=== PATIENT | male | born 1965 | race Caucasian/White ===

== ENCOUNTER 2021-06-04 12:57 | Outpatient (REF) | payer SELFPAY ==
[2021-06-04 20:05] LABS: ALT 22 U/L (16-63); AST 23 U/L (15-37); Albumin 4.1 g/dL (3.4-5.0); Alkaline Phosphatase 70 U/L (46-116); Anion Gap 11.5 mmol/L (3-11); BUN 12 mg/dL (7-18); Bilirubin, Total 0.4 mg/dL (0.2-1.0); CO2 24.5 mmol/L (21.0-32.0); CREATININE 0.7 mg/dL (0.70-1.30); Calcium 9.3 mg/dL (8.5-10.1); Chloride 103 mmol/L (98-107); Glucose 101 mg/dL (74-106); Potassium 4.6 mmol/L (3.5-5.1); Sodium 139 mmol/L (136-145); Total Protein 7.4 g/dL (6.4-8.2)
[2021-06-04 20:52] LABS: Calculated LDL 136 mg/dL (<100); Cholesterol 242 mg/dL (<200); HDL Cholesterol 94 mg/dL (40-60); Triglyceride 62 mg/dL (<150)
== END 2021-06-04 12:58 | disposition home or self-care (01) ==
LOC: NCHCN 12:57
PROVIDERS: Visit Provider Nurse Practitioner
DX: I10 Essential (primary) hypertension (principal)
CPT/HCPCS: 80053; 80061

== ENCOUNTER 2022-06-22 15:06 | Outpatient (REF) | payer SELFPAY ==
[2022-06-22 16:31] LABS: ALT 22 U/L (16-63); AST 29 U/L (15-37); Albumin 4.2 g/dL (3.4-5.0); Alkaline Phosphatase 69 U/L (46-116); Anion Gap 7.4 mmol/L (3-11); BUN 12 mg/dL (7-18); Bilirubin, Total 0.3 mg/dL (0.2-1.0); CO2 26.6 mmol/L (21.0-32.0); CREATININE 0.9 mg/dL (0.70-1.30); Calcium 9.3 mg/dL (8.5-10.1); Calculated LDL 99 mg/dL (<100); Chloride 98 mmol/L (98-107); Cholesterol 200 mg/dL (<200); Glucose 102 mg/dL (74-106); HDL Cholesterol 90 mg/dL (40-60); Potassium 4.3 mmol/L (3.5-5.1); Sodium 132 mmol/L (136-145); Total Protein 7.8 g/dL (6.4-8.2); Triglyceride 56 mg/dL (<150)
== END 2022-06-22 15:07 | disposition home or self-care (01) ==
LOC: NCHCN 15:06
PROVIDERS: PCP Nurse Practitioner Family; Visit Provider Nurse Practitioner Family
DX: Z00.00 Encounter for general adult medical examination without abnormal findings (principal); I10 Essential (primary) hypertension; E78.5 Hyperlipidemia, unspecified
CPT/HCPCS: 80053; 80061

== ENCOUNTER 2022-09-29 11:41 | Day surgery (SDC) | payer OTHER, SELFPAY ==
--- NOTE | 2022-09-29 08:36 | HPE_ITS ---
Documented by User: MIR Agrawal 09/29/22 12:29 Assessment and Plan Assessment and plan (1) Trigger finger, right ring finger: Status: Acute (2) Right carpal tunnel syndrome: Status: Acute Assessment and plan: Right ECTR and right ring finger trigger release. Details of surgery were discussed with patient as well as risks and pertinent anatomy. All questions were answered. History of Present Illness History of Present Illness Chief Complaint: Right hand numbness and tingling with right ring finger triggering. Narrative: Hansel is a 57-year-old male who comes in today for a right ECTR and right ring finger trigger release. He has had numbness and tingling with burning type pain in his right hand especially in the thumb, index and middle fingers. He states that the symptoms radiate up into the forearm as well. 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 He has attempted nighttime bracing with very little symptomatic relief. After a visit with neurology, EMGs revealed carpal tunnel syndrome of the right hand. He also has had sticking of the right ring finger over the last couple of months. Injections of trigger fingers on his other hand do not provide complete relief. As a result of failing conservative treatments, he was offered a right ECTR and right ring finger trigger release. Pertinent Surgical Information Patient denies CAD, COPD, asthma and diabetes. Review of Systems Constitutional Constitutional: Denies fever(s) ENT Ears, Nose, Mouth, and Throat: Denies dizziness and Denies sore throat Cardiovascular Cardiovascular: Denies chest pain, Denies palpitations and Denies dyspnea Respiratory Respiratory: Denies cough and Denies dyspnea Gastrointestinal Gastrointestinal: Denies abdominal pain, Denies melena, Denies hematochezia, Denies diarrhea, Denies nausea and Denies vomiting Genitourinary Genitourinary: Denies hematuria and Denies dysuria Neurologic Neurologic: Denies dizziness Endocrine Endocrine: Denies palpitations PFSH All Active Problems (Updated 09/28/22 @ 11:16 by Lisa Whaley RN) Hypertension (Chronic) Smoker (Acute) Trigger finger, left index finger (Acute) Trigger finger, left middle finger (Acute) Right carpal tunnel syndrome (Acute) Trigger finger, right ring finger (Acute) Medical History (Updated 09/28/22 @ 11:16 by Lisa Whaley RN) Erectile dysfunction History of amputation of toe Hyperlipidemia Surgical History (Updated 09/28/22 @ 11:16 by Lisa Whaley RN) History of back surgery History of hernia repair Social History Smoking/Tobacco Use Status: Current every day Smoking risk assessment performed?: Yes Drug use: Rarely Substance use type: marijuana Details: Pt states cannabis 2 hits q2wks Do you feel safe at home: Yes Do you feel safe in your relationship?: Yes Meds Allergies and Home Medications Allergies Allergy/AdvReac Type Severity Reaction Status Date / Time No Known Allergies Allergy Verified 08/28/22 08:18 Home Medications Medication Instructions Recorded Confirmed Type atorvastatin 20 mg tablet 20 mg PO DAILY 05/20/22 09/29/22 History hydrochlorothiazide 12.5 mg tablet 12.5 mg PO DAILY 05/20/22 09/29/22 History lisinopril 20 mg tablet 20 mg PO DAILY 05/20/22 09/29/22 History sildenafil 25 mg tablet 25 mg PO DAILY PRN 05/20/22 09/29/22 History terbinafine HCl 1 % topical cream 1 applic topical BID 08/20/22 09/29/22 History acetaminophen 500 mg tablet 500 mg PO Q6H PRN 09/28/22 09/29/22 History acetaminophen 500 mg tablet 500 mg PO Q6H PRN PRN pain #40 tabs 09/29/22 Rx hydrocodone 5 mg-acetaminophen 325 1 tab PO Q6H PRN pain #8 tabs 09/29/22 Rx mg tablet ibuprofen 600 mg tablet 600 mg PO TID PRN pain #90 tabs 09/29/22 Rx Exam Const General: cooperative and no acute distress Orientation: alert and awake [facility] Head: normocephalic and atraumatic Eyes Conjunctivae: conjunctivae normal Sclera: sclerae normal Resp Effort & Inspection: normal respiratory effort Auscultation: clear to auscultation bilaterally and no wheezes Cardio Rate: regular rate Rhythm: regular rhythm Heart Sounds: S1 normal, S2 normal and no murmurs GI Palpation: soft, no hepatosplenomegaly and nontender Documented by User: Jacinto Wyman MD 09/30/22 07:41 Assessment and Plan Assessment and plan (1) Trigger finger, right ring finger: Status: Acute (2) Right carpal tunnel syndrome: Status: Acute Assessment and plan: Right ECTR and right ring finger trigger release. Details of surgery were discussed with patient as well as risks and pertinent anatomy. All questions were answered. I interviewed and examined the patient with Jorge Alberto Tracey PA-C. I agree with the documentation as above. The assessment and plan were formulated with my direct involvement. Hansel is a 57-year-old [id number] male who has carpal tunnel syndrome, proved with nerve reduction studies and clinical exam, on the right side. Additionally, he has a trigger finger of the right ring finger. Please see the previous office note for complete detailed history. However, he is here today for carpal tunnel release and trigger finger release on the right side. I discussed the risks of the procedure to include, but not limited to, bleeding, infection, palmar pain, stiffness, damage to nerves, damage to vessels, damage to tendons, weakness, recurrence, and incomplete release. Given these risks, Hansel desires to proceed with carpal tunnel release and right ring finger trigger release. Jacinto Wyman MD FAAOS FAAHKS PFSH All Active Problems (Updated 09/28/22 @ 11:16 by Lisa Whaley RN) Hypertension (Chronic) Smoker (Acute) Trigger finger, left index finger (Acute) Trigger finger, left middle finger (Acute) Right carpal tunnel syndrome (Acute) Trigger finger, right ring finger (Acute) Medical History (Updated 09/28/22 @ 11:16 by Lisa Whaley RN) Erectile dysfunction History of amputation of toe Hyperlipidemia Surgical History (Updated 09/28/22 @ 11:16 by Lisa Whaley RN) History of back surgery History of hernia repair Social History Smoking/Tobacco Use Status: Current every day Smoking risk assessment performed?: Yes Drug use: Rarely Substance use type: marijuana Details: Pt states cannabis 2 hits q2wks Do you feel safe at home: Yes Do you feel safe in your relationship?: Yes Meds Allergies and Home Medications Allergies Allergy/AdvReac Type Severity Reaction Status Date / Time No Known Allergies Allergy Verified 08/28/22 08:18 Home Medications Medication Instructions Recorded Confirmed Type atorvastatin 20 mg tablet 20 mg PO DAILY 05/20/22 09/29/22 History hydrochlorothiazide 12.5 mg tablet 12.5 mg PO DAILY 05/20/22 09/29/22 History lisinopril 20 mg tablet 20 mg PO DAILY 05/20/22 09/29/22 History sildenafil 25 mg tablet 25 mg PO DAILY PRN 05/20/22 09/29/22 History terbinafine HCl 1 % topical cream 1 applic topical BID 08/20/22 09/29/22 History acetaminophen 500 mg tablet 500 mg PO Q6H PRN 09/28/22 09/29/22 History acetaminophen 500 mg tablet 500 mg PO Q6H PRN PRN pain #40 tabs 09/29/22 Rx hydrocodone 5 mg-acetaminophen 325 1 tab PO Q6H PRN pain #8 tabs 09/29/22 Rx mg tablet ibuprofen 600 mg tablet 600 mg PO TID PRN pain #90 tabs 09/29/22 Rx
[2022-09-29 11:55] VITALS: BP 158/95; PULSE 70; RESP 18; TEMP 37.2; O2SAT 100
[2022-09-29] MEDS: Lactated Ringers 1,000 ML 80 ML IV (12:21)
--- NOTE | 2022-09-29 12:33 | W.ANESPRE ---
General Info Date of Service Date Performed: 09/29/22 Height: 5 ft 11 in Weight: 77 kg Body Mass Index (BMI): 23.6 Surgical Procedure: Operation Date: 09/29/22 14:10 Proposed Procedure Side Surgeon p Wrist ECTR Right Jacinto Wyman MD s Trigger Release RRF Right Jacinto Wyman MD Meds Allergies and Home Medications Allergies Allergy/AdvReac Type Severity Reaction Status Date / Time No Known Allergies Allergy Verified 08/28/22 08:18 Home Medication Medication Instructions Recorded atorvastatin 20 mg tablet 20 mg PO DAILY 05/20/22 hydrochlorothiazide 12.5 mg tablet 12.5 mg PO DAILY 05/20/22 lisinopril 20 mg tablet 20 mg PO DAILY 05/20/22 sildenafil 25 mg tablet 25 mg PO DAILY PRN 05/20/22 terbinafine HCl 1 % topical cream 1 applic topical BID 08/20/22 acetaminophen 500 mg tablet 500 mg PO Q6H PRN 09/28/22 Current Visit Medications: Current Medications Generic Name Dose Route Start Last Admin Trade Name Kermitq PRN Reason Stop Dose Admin Ringer's Solution 1,000 mls @ 80 mls/hr 09/29/22 06:00 09/29/22 12:21 IV 10/28/22 23:59 80 mls/hr INFUSION CRISTIANA Administration Cefazolin Sodium/Dextrose 2 gm in 50 mls @ 100 mls/hr 09/29/22 06:00 Ancef Duplex IVPB 10/28/22 23:59 PREOP CRISTIANA IV Miscellaneous Supplies 1 each 09/29/22 06:00 Iv Access IV 10/28/22 23:59 DIRECTED CRISTIANA Sodium Chloride 0 ml 09/29/22 06:00 Normal Saline Flush 10 Ml Syr IV 10/28/22 23:59 PRN PRN Sodium Chloride 0 ml 09/29/22 06:00 Normal Saline 10 Ml Vial IJ 10/28/22 23:59 DIRECTED PRN Sterile Water 0 ml 09/29/22 06:00 Water,Injection,Sterile 10 Ml Vial IJ 10/28/22 23:59 DIRECTED PRN PFSH Active Problems Active Problems: Problem Status Onset Code Hypertension I10 Smoker F17.200 Trigger finger, left index finger M65.322 Trigger finger, left middle finger M65.332 Right carpal tunnel syndrome G56.01 Trigger finger, right ring finger M65.341 Medical History Medical History (Updated 09/28/22 @ 11:16 by Lisa Whaley RN) Erectile dysfunction History of amputation of toe Hyperlipidemia Surgical History Surgical History (Updated 09/28/22 @ 11:16 by Lisa Whaley RN) History of back surgery History of hernia repair Tobacco Smoking/Tobacco Use Status: Current every day Substance Use Substance use: Rarely Substance use type: marijuana Details: Pt states cannabis 2 hits q2wks Vital Signs and Lab Results Vital Signs Most Recent Vital Signs in EMR: Most Recent Vital Signs Temp Pulse Resp BP Pulse Ox 37.2 C 70 18 158/95 H 100 09/29/22 11:55 09/29/22 11:55 09/29/22 11:55 09/29/22 11:55 09/29/22 11:55 Lab Results Blood Type / Crossmatch: No Data to Display Complete Blood Count: No Data to Display Complete Metabolic Panel: No Data to Display Liver Function Panel: No Data to Display Coagulation Panel: No Data to Display Cardiac Panel: No Data to Display Arterial Blood Gas: No Data to Display Venous Blood Gas: No Data to Display Pancreas Panel: No Data to Display Thyroid Panel: No Data to Display Infectious Disease: No Data to Display Blood Cultures: No Data to Display Toxicology Panel: No Data to Display Anesthesia Assessment and Plan Anesthesia History Personal History: No History of Anesthesia Complications Family History: No Family History of Anesthesia Complications Exercise Tolerance Exercise Tolerance: Metabolic Equivalents>4 Pertinent Negatives Pertinent Negatives: No Symptoms of GERD, No Major Cardiovascular Symptoms or Complaints, No Major Pulmonary Symptoms or Complaints and No History of CVA/TIA Cardiac & Pulmonary Exam Cardiac Exam: Normal S1/S2 Heart Sounds Pulmonary Exam: Clear Bilateral Breath Sounds Implantable Cardiac Device Does patient have a Pacemaker or an ICD?: No Airway Exam Known Difficult Airway: No Mallampati Class: 2 Mouth Opening: Normal (> 3cm) Thyromental Distance: Greater than 3 cm Neck Range of Motion: Full ROM Neck Circumference: Normal Teeth Condition: Normal Dentition, Generalized Poor Dentition and Loose or Chipped Tooth Numberin. Reported possible chip on or ASA Classification ASA Score: ASA 2 Emergency Case?: No NPO Status NPO Status: NPO Clears >2 hours, Solids >8 hours Anesthesia Plan Resuscitation Status: Full Code Anesthesia Technique: General Anesthesia Airway Planned: Natural Airway Monitors Used: Standard Monitors
[2022-09-29 12:35] VITALS: BMI 23.6
[2022-09-29] MEDS: ceFAZolin 2 GM/50 ML BAG IVPB (13:52)
--- NOTE | 2022-09-29 14:07 | W.PM.DSUDISC ---
Date of service: 09/29/22 Time of Service: 14:11 Discharge Plan Disposition Patient Disposition: HOME Condition: Good Discharge Details Reason For Visit: Right carpal tunnel and right ring trigger finger Attending Provider: Jacinto Wyman Primary Care Provider: KIRAN ISBELL Home Meds and New Rx's Prescriptions: New hydrocodone-acetaminophen 5-325 mg tablet 1 tab PO Q6H PRN (Reason: pain) Qty: 8 0RF acetaminophen 500 mg tablet 500 mg PO Q6H PRN PRN (Reason: pain) Qty: 40 3RF ibuprofen 600 mg tablet 600 mg PO TID PRN (Reason: pain) Qty: 90 3RF Continued terbinafine HCl 1 % cream 1 applic topical BID sildenafil 25 mg tablet 25 mg PO DAILY PRN Rx Instructions: administer 30 minutes to 4 hours before activity lisinopril 20 mg tablet 20 mg PO DAILY hydrochlorothiazide 12.5 mg tablet 12.5 mg PO DAILY atorvastatin 20 mg tablet 20 mg PO DAILY acetaminophen 500 mg Tablet 500 mg PO Q6H PRN Discharge Instructions Stand Alone Forms: Anesthesia Discharge Inst., [place] C. Tunnel Release, [place] T. Finger Release, Etta Aguila ([facility]) Referrals: Jacinto Wyman MD [ [facility] STAFF PHYSICIAN] - Activity:: Elevate Remove Dressings/Wound Care:: 48 hours Shower/Bathe:: 48 hours Diet:: As Tolerated Discharge Orders Discharge Orders: Discharge Order (Routine); Ordered 09/29/22 Ordered By: Elisabeth Arreola DS: Diagnosis Discharge Diagnosis (1) Trigger finger, right ring finger: Status: Acute (2) Right carpal tunnel syndrome: Status: Acute
[2022-09-29 14:20] VITALS: BP 128/78; PULSE 67; RESP 18; TEMP 36.5; O2SAT 98
[2022-09-29 14:53] VITALS: BP 140/94; PULSE 58; RESP 18; TEMP 36.5; O2SAT 98
--- NOTE | 2022-09-29 15:26 | W.ANESPOSTOP ---
Postoperative Evaluation Date, Time and Location Date Performed: 09/29/22 Time Performed: 15:26 Patient Location: Day Surgery Unit Vital Signs Most Recent Imported Vital Signs: Most Recent Vital Signs Temp Pulse Resp BP Pulse Ox 36.5 C 58 L 18 140/94 H 98 09/29/22 14:53 09/29/22 14:53 09/29/22 14:53 09/29/22 14:53 09/29/22 14:53 Pain Score Most Recent Pain Score: Most Recent Pain Score Pain Level 0 09/29/22 14:53 Assessment Mental Status: Awake (Alert & Oriented to Patient Baseline) Airway and Respiratory Function: Patent airway with normal (patient baseline) respiratory exam Cardiovascular Function: Hemodynamically Stable Hydration Status: Adequately Hydrated Nausea & Vomiting: No Nausea or Vomiting Pain: Pt. Denies Any Pain Peripheral Nerve Block: Patient did not receive a nerve block
--- NOTE | 2022-09-29 20:55 | ROE_ITS ---
Date of service: 09/29/22 Time of Service: 14:15 Operative Note Operative Note DATE OF PROCEDURE: 09/29/22 PRE-OP DIAGNOSIS: Right Carpal Tunnel Syndrome and Right Ring Finger Trigger Release POST-OP DIAGNOSIS: same PROCEDURE: Right Endoscopic Carpal Tunnel Release, Right Ring Finger Trigger Release SURGEON: Jacinto Wyman ANESTHESIA TYPE: General:No Airway Refer to Anesthesia Record ESTIMATED BLOOD LOSS: 0 PATHOLOGY: none sent TOURNIQUET TIME: 10 COMPLICATIONS: None Patient was transported to: same day Patient's condition: stable Indications: I have seen Hansel in clinic for symptoms of carpal tunnel syndrome and a trigger finger of the ring finger. The numbness, tingling, and pain limited function. Clinical exam findings with nerve conduction tests confirmed the diagnosis of carpal tunnel syndrome. Nonoperative measures such as bracing, time, activity modifications had been tried but disability and pain persisted. I discussed carpal tunnel release with the patient. I reviewed the risks of the procedure to include, but not limited to, bleeding, infection, pain, stiffness, incomplete release, damage to nerves or vessels, persistent numbness, recurrence. Despite these risks, the patient elected to proceed. Findings: There was tightened carpal tunnel. This was dilated and released successfully with the endoscopic with increased space within the tunnel. The antebrachial fascia was released proximally freeing the median nerve at the wrist. The A1 terri of the ring finger was released without difficulty. Procedure Description: Hansel was greeted in the preoperative holding area where the correct side was identified and marked. The consent was reviewed with the patient and signed. The history and physical was updated. All questions were answered. He was taken back to the operating room. The patient was placed into the supine position on the operating room table with the right arm on an arm board. A nonsterile tourniquet was placed high onto the arm. All bony prominences were well padded. Prophylactic antibiotics in the form of Cefazolin were administered. The right arm was then prepped with Chloraprep and draped in a standard fashion with stockinette and extremity drape. A timeout to confirm correct identity, side and site, procedure, allergies, anesthesia, and medical concerns was performed. The surgical site was marked in the volar wrist creases in line with the radial border of the fourth ray. This area was anesthetized with approximately 6cc of 1% Lidocaine. The limb was then exsanguinated with an Esmarch. The skin was incised with a 15 blade, approximately 1cm. The skin only was cut and the deeper tissue was dissected bluntly with a tenotomy scissor, avoiding passing nerve and venous structures. The fascia was penetrated and opened bluntly. A t wo-prong skin hook was placed under this proximal fascial edge. A series of hamate finders were used to identify and dilate the carpal tunnel. Synovial elevator was used to free synovial attachments to the underside of the transverse carpal ligament. My thumb was kept in the palm to laurie the distal extent of the carpal tunnel and correctly position the hand. The Microaire endoscope was inserted without difficulty and without resistance. Excellent visualization showed horizontally running fibers of the transverse carpal ligament (TCL). The distal extent of the TCL was visualized and the end of the scope palpated with the thumb. The blade was elevated and withdrawn from distal to proximal. The TCL was split into two flaps. The endoscope was reinserted to confirm complete release and any remnant ligament was incised. The scope was withdrawn and the proximal aspect of the carpal tunnel was grossly inspected and appeared release with the median nerve visible. The antebrachial fascia at the level of the wrist was then freed from the overlying skin and then the underlying median nerve with blunt dissection. This was transected longitudinally for about 3cm proximal to the wrist incision. The wound was then irrigated with easy flow of irrigant distally and proximally. The incision was closed with a single 4-0 Nylon suture. Attention was then turned to the right ring finger. A longitudinal incision was made overlying the A1 terri of the right ring finger after anesthetizing the skin and superficial tissues with 1% lidocaine. Tissues were bluntly dissected overlying the A1 terri until it was easily identifiable. The A1 pulleys and released with a tenotomy scissor. The tendons were then inspected, removed from the hand, and then returned. There is no significant synovitis. The wound was then irrigated. The skin was closed with a single 4-0 nylon suture. The wound was dressed with Xeroform, Gauze, Kerlix and Zeferino. The tourniquet was deflated with the initial dressing and held with some pressure. Blood flow returned easily to all digits with capillary refill less than 2 seconds. The patient tolerated the procedure well and was returned to the Same Day Surgery area in a stable condition suffering no known complication.
== END 2022-09-29 15:20 | disposition home or self-care (01) ==
PROVIDERS: PCP Nurse Practitioner Family; Visit Provider Student in an Organized Health Care Education/Training Program
PROC: 01N54ZZ Release Median Nerve, Percutaneous Endoscopic Approach (ICD-10-PCS; CPT 29848; principal; 2022-09-29 14:00)
DX: M65.341 Trigger finger, right ring finger (principal); G56.01 Carpal tunnel syndrome, right upper limb
CPT/HCPCS: 29848; 26055; J0690; J2250; J2405

== ENCOUNTER 2023-03-30 10:29 | Day surgery (SDC) | payer OTHER, SELFPAY ==
[2023-03-30] MEDS: Lactated Ringers 1,000 ML 80 ML IV (11:01)
[2023-03-30 11:08] VITALS: BP 158/90; PULSE 71; RESP 16; TEMP 36.2; O2SAT 99
--- NOTE | 2023-03-30 11:55 | W.ANESPRE ---
General Info Date of Service Date Performed: 03/30/23 Height: 5 ft 11 in Weight: 78.3 kg Body Mass Index (BMI): 24.0 Surgical Procedure: Operation Date: 03/30/23 12:40 Proposed Procedure Side Surgeon p Wrist ECTR Left Jacinto Wyman MD s Trigger Finger Release LIF, LMF Left Jacinto Wyman MD Meds Allergies and Home Medications Allergies Allergy/AdvReac Type Severity Reaction Status Date / Time No Known Allergies Allergy Verified 03/30/23 11:05 Home Medication Medication Instructions Recorded atorvastatin 20 mg tablet 20 mg PO DAILY 05/20/22 hydrochlorothiazide 12.5 mg tablet 12.5 mg PO DAILY 05/20/22 lisinopril 20 mg tablet 20 mg PO DAILY 05/20/22 sildenafil 25 mg tablet 25 mg PO DAILY PRN 05/20/22 terbinafine HCl 1 % topical cream 1 applic topical BID 08/20/22 acetaminophen 500 mg tablet 500 mg PO Q6H PRN PRN pain #40 tabs 09/29/22 ibuprofen 600 mg tablet 600 mg PO TID PRN pain #90 tabs 09/29/22 Current Visit Medications: Current Medications Generic Name Dose Route Start Last Admin Trade Name Freq PRN Reason Stop Dose Admin Ringer's Solution 1,000 mls @ 80 mls/hr 03/30/23 06:00 03/30/23 11:01 IV 04/28/23 23:59 80 mls/hr INFUSION CRISTIANA Administration Cefazolin Sodium/Dextrose 2 gm in 50 mls @ 100 mls/hr 03/30/23 06:00 Ancef Duplex IVPB 03/30/23 16:00 PREOP CRISTIANA IV Miscellaneous Supplies 1 each 03/30/23 06:00 Iv Access IV 04/28/23 23:59 DIRECTED CRISTIANA Sodium Chloride 0 ml 03/30/23 06:00 Normal Saline Flush 10 Ml Syr IV 04/28/23 23:59 PRN PRN Sodium Chloride 0 ml 03/30/23 06:00 Normal Saline 10 Ml Vial IJ 04/28/23 23:59 DIRECTED PRN Sterile Water 0 ml 03/30/23 06:00 Water,Injection,Sterile 10 Ml Vial IJ 04/28/23 23:59 DIRECTED PRN PFSH Active Problems Active Problems: Problem Status Onset Code Hypertension I10 Smoker F17.200 Trigger finger, left index finger M65.322 Trigger finger, left middle finger M65.332 Right carpal tunnel syndrome G56.01 Trigger finger, right ring finger M65.341 Left carpal tunnel syndrome G56.02 Cubital tunnel syndrome on left G56.22 Medical History Medical History Erectile dysfunction History of amputation of toe Hyperlipidemia Medical History Comments:: 03/30/23 pt reports he hs smoked 3 cigarettes this morning Surgical History Surgical History History of back surgery L5 disc (1985) History of hernia repair Tobacco Smoking/Tobacco Use Status: Current every day Alcohol Alcohol Intake: current Alcohol intake frequency: 3 or more drinks per day Alcohol type: beer Substance Use Substance use: Rarely Substance use type: marijuana Details: 03/30/23: Pt states cannabis 2 hits q2wks Last smoked 2 weeks ago. Vital Signs and Lab Results Vital Signs Most Recent Vital Signs in EMR: Most Recent Vital Signs Temp Pulse Resp BP Pulse Ox 36.2 C L 71 16 158/90 H 99 03/30/23 11:08 03/30/23 11:08 03/30/23 11:08 03/30/23 11:08 03/30/23 11:08 Lab Results Blood Type / Crossmatch: No Data to Display Complete Blood Count: No Data to Display Complete Metabolic Panel: No Data to Display Liver Function Panel: No Data to Display Coagulation Panel: No Data to Display Cardiac Panel: No Data to Display Arterial Blood Gas: No Data to Display Venous Blood Gas: No Data to Display Pancreas Panel: No Data to Display Thyroid Panel: No Data to Display Infectious Disease: No Data to Display Blood Cultures: No Data to Display Toxicology Panel: No Data to Display Anesthesia Assessment and Plan Anesthesia History Personal History: No History of Anesthesia Complications Family History: No Family History of Anesthesia Complications Exercise Tolerance Exercise Tolerance: Metabolic Equivalents>4 Cardiac & Pulmonary Exam Cardiac Exam: Normal S1/S2 Heart Sounds Pulmonary Exam: Clear Bilateral Breath Sounds Implantable Cardiac Device Does patient have a Pacemaker or an ICD?: No Airway Exam Known Difficult Airway: No Mallampati Class: 2 Mouth Opening: Normal (> 3cm) Thyromental Distance: Greater than 3 cm Neck Range of Motion: Full ROM Neck Circumference: Normal Teeth Condition: Normal Dentition, Generalized Poor Dentition and Loose or Chipped ASA Classification ASA Score: ASA 2 Emergency Case?: No NPO Status NPO Status: NPO Clears >2 hours, Solids >8 hours Anesthesia Plan Resuscitation Status: Full Code Anesthesia Technique: General Anesthesia Airway Planned: Natural Airway Monitors Used: Standard Monitors
[2023-03-30 12:15] VITALS: BMI 24.0
--- NOTE | 2023-03-30 12:19 | HPE_ITS ---
Assessment and Plan Assessment and plan (1) Trigger finger, left index finger: Status: Acute (2) Trigger finger, left middle finger: Status: Acute (3) Left carpal tunnel syndrome: Status: Acute Assessment and plan: Hansel is a 58 year old male with left carpal tunnel syndrome as well as trigger fingers of the left index and middle fingers. He has failed nonopera tive treatments and desires to proceed with carpal tunnel release and trigger finger release of the left wrist and left index and middle fingers, respectively. I reviewed the risks of the procedure to include bleeding, infection, pain, stiffness, damage to nerves and vessels, inflammation or scarring around the nerve, recurrence, need for repeat procedures. Despite these risks, he elects to proceed. History of Present Illness Narrative: Hansel is a 58 yo male who has known carpal tunnel of the left hand. He also has a trigger finger of the index and middle finger of the left hand. He had successful carpal tunnel release and trigger finger release on the right. Please see the previous office note for a complete detailed orthopaedic history but he is here today for left carpal tunnel release and left index and middle finger trigger releases. No new issues. No new health issues. No chest pain or SOB. Review of Systems All systems reviewed & are unremarkable except as noted in HPI and below PFSH All Active Problems Hypertension (Chronic) Smoker (Acute) Trigger finger, left index finger (Acute) Depo-Medrol injection: 07/06/2022 Trigger finger, left middle finger (Acute) Depo-Medrol junction: 07/06/2022 Right carpal tunnel syndrome (Acute) S/P ECTR: 09/29/2022 Trigger finger, right ring finger (Acute) S/P Release: 09/29/2022 Left carpal tunnel syndrome (Acute) Cubital tunnel syndrome on left (Acute) Medical History Erectile dysfunction History of amputation of toe Hyperlipidemia Surgical History History of back surgery L5 disc (1985) History of hernia repair Social History Smoking/Tobacco Use Status: Current every day Smoking risk assessment performed?: Yes Alcohol Intake: current Alcohol Intake frequency: 3 or more drinks per day Al cohol type: beer Drug use: Rarely Substance use type: marijuana Details: 03/30/23: Pt states cannabis 2 hits q2wks Last smoked 2 weeks ago. Do you feel safe at home: Yes (unable to assess privately) Do you feel safe in your relationship?: Yes Meds Allergies and Home Medications Allergies Allergy/AdvReac Type Severity Reaction Status Date / Time No Known Allergies Allergy Verified 03/30/23 11:05 Home Medications Medication Instructions Recorded Confirmed Type atorvastatin 20 mg tablet 20 mg PO DAILY 05/20/22 03/30/23 History hydrochlorothiazide 12.5 mg tablet 12.5 mg PO DAILY 05/20/22 03/30/23 History lisinopril 20 mg tablet 20 mg PO DAILY 05/20/22 03/30/23 History sildenafil 25 mg tablet 25 mg PO DAILY PRN 05/20/22 03/30/23 History terbinafine HCl 1 % topical cream 1 applic topical BID 08/20/22 03/30/23 History acetaminophen 500 mg tablet 500 mg PO Q6H PRN PRN pain #40 tabs 09/29/22 03/30/23 Rx ibuprofen 600 mg tablet 600 mg PO TID PRN pain #90 tabs 09/29/22 03/30/23 Rx Exam Resp Effort & Inspection: normal respiratory effort Auscultation: clear to auscultation bilaterally Cardio Rate: regular rate Rhythm: regular rhythm Results Last Vital Signs Temp 36.2 C L 03/30/23 11:08 Pulse 71 03/30/23 11:08 Resp 16 03/30/23 11:08 BP 158/90 H 03/30/23 11:08 Pulse Ox 99 03/30/23 11:08
--- NOTE | 2023-03-30 12:26 | PDOC.DSDIS_ITS ---
Date of service: 03/30/23 Time of Service: 12:26 Discharge Plan Disposition Patient Disposition: Home Condition: Good Discharge Details Reason For Visit: Left Carpal Tunnel Syndrome and LIF and LMF Trigge Attending Provider: Jacitno Wyman Primary Care Provider: KIRAN ISBELL Home Meds and New Rx's Prescriptions: New hydrocodone-acetaminophen 5-325 mg tablet 1 tab PO Q6H PRN (Reason: pain) Qty: 8 0RF acetaminophen 500 mg tablet 500 mg PO Q6H PRN PRN (Reason: pain) Qty: 60 3RF Continued terbinafine HCl 1 % cream 1 applic topical BID sildenafil 25 mg tablet 25 mg PO DAILY PRN Rx Instructions: administer 30 minutes to 4 hours before activity lisinopril 20 mg tablet 20 mg PO DAILY hydrochlorothiazide 12.5 mg tablet 12.5 mg PO DAILY atorvastatin 20 mg tablet 20 mg PO DAILY ibuprofen 600 mg tablet 600 mg PO TID PRN (Reason: pain) Qty: 90 3RF Discontinued acetaminophen 500 mg tablet 500 mg PO Q6H PRN PRN (Reason: pain) Qty: 40 3RF Discharge Instructions Stand Alone Forms: Anesthesia Discharge Inst., Etta Aguila (DSU), [place] T. Finger Release, [place] C. Tunnel Release Referrals: Jacinto Wyman MD [ [facility] STAFF PHYSICIAN] - 04/08/23 8:00 am Activity:: Elevate Remove Dressings/Wound Care:: 48 hours Shower/Bathe:: 48 hours Diet:: As Tolerated Discharge Orders Discharge Orders: Discharge Order (Routine); Ordered 03/30/23 Ordered By: Jacinto Wyman DS: Diagnosis Discharge Diagnosis (1) Trigger finger, left index finger: Status: Acute (2) Trigger finger, left middle finger: Status: Acute (3) Left carpal tunnel syndrome: Status: Acute
[2023-03-30] MEDS: ceFAZolin 2 GM/50 ML BAG IVPB (12:32)
[2023-03-30 13:02] VITALS: BP 125/73; PULSE 67; RESP 16; TEMP 36.2; O2SAT 95
[2023-03-30 13:28] VITALS: BP 117/74; PULSE 62; RESP 16; TEMP 36.2; O2SAT 95
--- NOTE | 2023-03-30 15:43 | W.ANESPOSTOP ---
Postoperative Evaluation Date, Time and Location Date Performed: 03/30/23 Time Performed: 13:35 Patient Location: Day Surgery Unit Vital Signs Most Recent Imported Vital Signs: Most Recent Vital Signs Temp Pulse Resp BP Pulse Ox 36.2 C L 62 16 117/74 95 03/30/23 13:28 03/30/23 13:28 03/30/23 13:28 03/30/23 13:28 03/30/23 13:28 Pain Score Most Recent Pain Score: Most Recent Pain Score Pain Level 0 03/30/23 13:28 Assessment Mental Status: Awake (Alert & Oriented to Patient Baseline) Airway and Respiratory Function: Patent airway with normal (patient baseline) respiratory exam Cardiovascular Function: Hemodynamically Stable Hydration Status: Adequately Hydrated Nausea & Vomiting: No Nausea or Vomiting Pain: Pt. Denies Any Pain Peripheral Nerve Block: Patient did not receive a nerve block
--- NOTE | 2023-03-31 06:07 | ROE_ITS ---
Date of service: 03/30/23 Time of Service: 13:00 Operative Note Operative Note DATE OF PROCEDURE: 03/30/23 PRE-OP DIAGNOSIS: Left carpal tunnel syndrome, left middle finger and index finger trigger fingers POST-OP DIAGNOSIS: same PROCEDURE: Left endoscopic carpal tunnel release, trigger finger release of the left middle and index fingers SURGEON: Jacinto Wyman ANESTHESIA TYPE: General:No Airway Refer to Anesthesia Record ESTIMATED BLOOD LOSS: 0 PATHOLOGY: none sent TOURNIQUET TIME: 6 COMPLICATIONS: None Patient was transported to: same day Patient's condition: stable Indications: I have seen Hansel in clinic for symptoms of carpal tunnel syndrome. The numbness, tingling, and pain limited function. Clinical exam findings [with nerve conduction tests ]confirmed the diagnosis of carpal tunnel syndrome. Nonoperative measures such as bracing, time, activity modifications had been tried but disability and pain persisted. I discussed carpal tunnel release with the patient. He also had ongoing trigger fingers of the index and middle fingers which intially responded to injection but have since returned. T herefore, I also offered trigger finger releases. I reviewed the risks of the procedure to include, but not limited to, bleeding, infection, pain, stiffness, incomplete release, damage to nerves or vessels, persistent numbness, recurrence. Despite these risks, the patient elected to proceed. Findings: There was tightened carpal tunnel. This was dilated and released successfully with the endoscopic with increased space within the tunnel. The antebrachial fascia was released proximally freeing the median nerve at the wrist. A1 terri of both fingers is quite tight and was released without difficulty. The tendons were inspected and there were no signs of tendon damage. Procedure Description: Hansel was greeted in the preoperative holding area where the correct side was identified and marked. The consent was reviewed with the patient and signed. The history and physical was updated. All questions were answered. We was taken back to the operating room. The patient was placed into the supine position on the operating room table with the left arm on an arm board. A nonsterile tourniquet was placed high onto the arm. All bony prominences were well padded. Prophylactic antibiotics in the form of Cefazolin were administered. The left arm was then prepped with Chloraprep and draped in a standard fashion with stockinette and extremity drape. A timeout to confirm correct identity, side and site, procedure, allergies, anesthesia, and medical concerns was performed. The surgical site was marked in the volar wrist creases in line with the radial border of the fourth ray. This area was anesthetized with approximately 6cc of 1% Lidocaine. The limb was then exsanguinated with an Esmarch. The skin was incised with a 15 blade, approximately 1cm. The skin only was cut and the deeper tissue was dissected bluntly with a tenotomy scissor, avoiding passing nerve and venous structures. The fascia was penetrated and opened bluntly. A two-prong skin hook was placed under this proximal fascial edge. A series of hamate finders were used to identify and dilate the carpal tunnel. Synovial elevator was used to free synovial attachments to the underside of the transverse carpal ligament. My thumb was kept in the palm to laurie the distal extent of the carpal tunnel and correctly position the hand. The Microaire endoscope was inserted without difficulty and without resistance. Excellent visualization showed horizontally running fibers of the transverse carpal ligament (TCL). The distal extent of the TCL was visualized and the end of the scope palpated with the thumb. The blade was elevated and withdrawn from distal to proximal. The TCL was split into two flaps. The endoscope was reinserted to confirm complete release and any remnant ligament was incised. The scope was withdrawn and the proximal aspect of the carpal tunnel was grossly inspected and appeared release with the median nerve visible. The antebrachial fascia at the level of the wrist was then freed from the overlying skin and then the underlying median nerve with blunt dissection. This was transected longitudinally for about 3cm proximal to the wrist incision. The wound was then irrigated with easy flow of irrigant distally and proximally. The incision was closed with a single 4-0 Nylon suture. Attention was then turned to the trigger fingers. The surgical site was marked as a longitudinal incision directly over the A1 terri of the index and middle fingers.? This area, overlying the metacarpal head, was then anesthetized with 1% Lidocaine.? Starting with the index finger, A longitudinal incision was made through skin only, approximately 1cm.? The deep tissues were dissected bluntly.? Once the A1 terri and flexor tendons were identified the soft tissue including neurovascular structures were retracted medially and laterally.? There were no crossing structures over the A1 terri.? ? The proximal edge of the terri was identified and the terri was incised with tenotomy scissors.? There was a release of the tendons once this was fully released.? The tendons were then removed from the wound and inspected.? There is no significant synovitis nor was there seen any tendon damage.? The hand was then once more inspected for any A0 terri or area of possible constriction.? The wound was then irrigated and the skin was closed with a 4-0 Nylon.? Moving to the middle finger, a longitudinal incision was made through skin only, approximately 1cm.? The deep tissues were dissected bluntly.? Once the A1 terri and flexor tendons were identified the soft tissue including neurovascular structures were retracted medially and laterally.? There were no crossing structures over the A1 terri.? ? The proximal edge of the terri was identified and the terri was incised with tenotomy scissors.? There was a release of the tendons once this was fully released.? The tendons were then removed from the wound and inspected.? There is no significant synovitis nor tendon damage. The hand was then once more inspected for any A0 terri or area of possible constr iction.? The wound was then irrigated and the skin was closed with a 4-0 Nylon.? The wounds were dressed with Xeroform, Gauze, Kerlix and Zeferino. The tourniquet was deflated with the initial dressing and held with some pressure. Blood flow returned easily to all digits with capillary refill less than 2 seconds. The patient tolerated the procedure well and was returned to the Same Day Surgery area in a stable condition suffering no known complication.
== END 2023-03-30 13:49 | disposition home or self-care (01) ==
PROVIDERS: PCP Nurse Practitioner Family; Visit Provider Student in an Organized Health Care Education/Training Program
PROC: 01N54ZZ Release Median Nerve, Percutaneous Endoscopic Approach (ICD-10-PCS; CPT 29848; principal; 2023-03-30 12:30)
PROC: (CPT 26055; 2023-03-30 12:30)
DX: M65.322 Trigger finger, left index finger (principal); M65.332 Trigger finger, left middle finger; G56.02 Carpal tunnel syndrome, left upper limb
CPT/HCPCS: 29848; 26055 ×2; J0690; J2405

== ENCOUNTER 2023-04-26 16:18 | Outpatient (REF) | payer SELFPAY ==
[2023-04-26 17:48] LABS: Anion Gap 6.2 mmol/L (3-11); BUN 9 mg/dL (7-18); CO2 30.8 mmol/L (21.0-32.0); CREATININE 0.8 mg/dL (0.70-1.30); Calcium 9.5 mg/dL (8.5-10.1); Calculated LDL 66 mg/dL (<100); Chloride 98 mmol/L (98-107); Cholesterol 167 mg/dL (<200); Estimated GFR 101.32 (mL/min/1.73m2); Glucose 111 mg/dL (74-106); HDL Cholesterol 96 mg/dL (40-60); Sodium 135 mmol/L (136-145); Triglyceride 26 mg/dL (<150)
== END 2023-04-26 16:19 | disposition home or self-care (01) ==
LOC: NCHCN 16:18
PROVIDERS: PCP Nurse Practitioner Family; Visit Provider Nurse Practitioner Family
DX: I10 Essential (primary) hypertension (principal); E78.5 Hyperlipidemia, unspecified; F17.210 Nicotine dependence, cigarettes, uncomplicated
CPT/HCPCS: 80048; 80061

== ENCOUNTER 2023-06-29 10:41 | Day surgery (SDC) | payer OTHER, SELFPAY ==
[2023-06-29 10:45] VITALS: BP 123/89; PULSE 79; RESP 18; TEMP 36.7; O2SAT 99
--- NOTE | 2023-06-29 12:22 | PDOC.DSDIS_ITS ---
Date of service: 06/29/23 Time of Service: 12:24 Discharge Plan Disposition Patient Disposition: Home Condition: Good Discharge Details Reason For Visit: Tenosynovitis of left index finger Attending Provider: Jacinto Wyman Primary Care Provider: KIRAN ISBELL Home Meds and New Rx's Prescriptions: New hydrocodone-acetaminophen 5-325 mg tablet 1 tab PO Q6H PRN (Reason: severe pain) Qty: 6 0RF Rx Instructions: Take one tablet up to every 6 hours as needed for severe postoperative pain Continued terbinafine HCl 1 % cream 1 applic topical BID terbinafine HCl 250 mg tablet 250 mg PO DAILY sildenafil 25 mg tablet 25 mg PO DAILY PRN Rx Instructions: administer 30 minutes to 4 hours before activity lisinopril 20 mg tablet 20 mg PO DAILY hydrochlorothiazide 12.5 mg tablet 12.5 mg PO DAILY atorvastatin 20 mg tablet 20 mg PO DAILY aspirin 81 mg Tablet,Chewable 81 mg PO DAILY acetaminophen 500 mg tablet 500 mg PO Q6H PRN PRN (Reason: pain) Qty: 60 3RF ibuprofen 600 mg tablet 600 mg PO TID PRN (Reason: pain) Qty: 90 3RF Discharge Instructions Stand Alone Forms: Etta Aguila (DSU), Zamzam Villalba Finger Release Referrals: Jacinto Wyman MD [ [facility] STAFF PHYSICIAN] - Activity:: Elevate Remove Dressings/Wound Care:: 72 hours Shower/Bathe:: 72 hours Diet:: As Tolerated Discharge Orders Discharge Orders: Discharge Order (Routine); Ordered 06/29/23 Ordered By: Elisabeth Arreola
[2023-06-29] MEDS: Lidocaine 1% Multi-Dose W/EPI 1/100,000 50 ML VIAL (12:56)
[2023-06-29] MEDS: Sodium Bicarbonate 50 MEQ/50 ML VIAL (12:56)
[2023-06-29 13:18] VITALS: BP 137/89; PULSE 71; RESP 18; TEMP 37; O2SAT 97
--- NOTE | 2023-06-29 20:53 | ROE_ITS ---
Date of service: 06/29/23 Time of Service: 13:00 Operative Note Operative Note DATE OF PROCEDURE: 06/29/23 PRE-OP DIAGNOSIS: Left Index Finger Tenosynovitis POST-OP DIAGNOSIS: same PROCEDURE: Tenosynovectomy of the left index finger SURGEON: Jacinto Wyman ANESTHESIA TYPE: Local By Surgeon Refer to Anesthesia Record ESTIMATED BLOOD LOSS: 5 PATHOLOGY: none sent COMPLICATIONS: None Patient was transported to: same day Patient's condition: stable Indications: I have seen Hansel in clinic for stiffness and painful clicking after trigger finger release. This was limiting his progress with physical therapy and activity. Given the ongoing symptoms I offered a tenosynovectomy of the left index finger. He had some stiffness of the middle finger after trigger finger release but none of the painful restriction or clicking which she had going on the index finger. This was different than his preoperative symptoms. Nevertheless, it was interfering this progress and I recommended tenosynovectomy. I reviewed the risks of the procedure to include, but not limited to, bleeding, infection, pain, stiffness, damage to nerves or vessels, continued catching, recurrence. Despite these risks, the patient elected to proceed. Findings: There was dense scar tissue and synovitis of the index finger tendons. This was fully resected and there is no recreation of symptoms. Procedure Description: Hansel was greeted in the preoperative holding area where the correct side was identified and marked. The consent was reviewed with the patient and signed. All questions were answered. He was taken back to the operating room. The patient was placed into the supine position on the operating room table with the left arm on an arm board. All bony prominences were well padded. No prophylactic antibiotics were administered since this was a clean, elective hand surgical case. The left arm was then prepped with Chloraprep and draped in a standard fashion with stockinette and extremity drape. A timeout to confirm correct identity, side and site, procedure, allergies, anesthesia, and medical concerns was performed. The surgical site was marked as an extension proximally into the distal palmar crease and up to the previous incision site. This was confirmed with palpation during finger flexion. This area was then anesthetized with 1% Lidocaine with epinephrine, buffered with sodium bicarbonate. The patient tolerated this well and once the anesthetic had setup, the procedure began. An incision was made through skin only. The deep tissues were dissected bluntly. The flexor tendons were identified and the soft tissue including neurovascular structures were retracted medially and laterally. There was dense and thickened synovium and inflammatory changes seen about the flexor tendons proximal to the A1 terri site. The A1 terri was released although was scarring around the tendons. As he move the finger the scar tissue was seen to bunch and catch. Therefore, I was aggressive with resection of the synovium and scarring from around the tendons. Both FDP and FDS tendons were inspected and a synovectomy was performed. This was carried out to the previous site of the A1 terri release where the tendons were noted to be easily mobile without any catching or locking. This synovectomy was completed throughout the course of the tendons and the tendons were inspected at various positions as the patient moved his finger from extension into flexion. Once again any bulky tissue was removed, particular anything loose or adherent. The patient was asked to move the finger into deep flexion and back to extension. There was no recreation of the pre- operative symptoms. The wound was then irrigated and the skin was closed with a 4-0 Nylon. This was dressed with gauze and a Conform dressing. The patient tolerated the procedure well and was returned to the Same Day Surgery area in a stable condition suffering no known complication.
== END 2023-06-29 13:35 | disposition home or self-care (01) ==
PROVIDERS: PCP Nurse Practitioner Family; Visit Provider Student in an Organized Health Care Education/Training Program
PROC: (CPT 26055; principal; 2023-06-29 14:15)
DX: M65.322 Trigger finger, left index finger (principal)
CPT/HCPCS: 26055

== ENCOUNTER 2024-09-26 13:49 | Outpatient (CLI) | payer OTHER, SELFPAY ==
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
== END 2024-09-26 14:09 ==
PROVIDERS: PCP Nurse Practitioner Family; Visit Provider Chiropractor
DX: W17.89XA Other fall from one level to another, initial encounter (principal); M51.360 Other intervertebral disc degeneration, lumbar region with discogenic back pain only
CPT/HCPCS: 72072; 72110

== ENCOUNTER 2025-04-23 17:52 | Outpatient (REF) | payer SELFPAY ==
[2025-04-23 15:34] LABS: HCT 39.6 % (40.0-50.0); HGB 13.4 g/dL (13.5-17.5); MCH 31.5 pg (27.0-33.0); MCHC 33.8 % (32.0-36.0); MCV 93 fL (80-95); MPV 9.9 fL (8.0-11.0); Platelet Count 387 10^3/uL (130-400); RBC 4.26 10^6/uL (4.36-5.78); RDW 12.2 % (11.8-14.1); RDW-SD 41.6 fL
[2025-04-23 15:47] LABS: ALT 24 U/L (16-63); AST 34 U/L (15-37); Albumin 3.8 g/dL (3.4-5.0); Alkaline Phosphatase 83 U/L (46-116); Anion Gap 9.1 mmol/L (3-11); BUN 11 mg/dL (7-18); Bilirubin, Total 0.3 mg/dL (0.2-1.0); CO2 25.9 mmol/L (21.0-32.0); CREATININE 0.6 mg/dL (0.70-1.30); Calcium 9.3 mg/dL (8.5-10.1); Calculated LDL 101 mg/dL (<100); Chloride 95 mmol/L (98-107); Cholesterol 198 mg/dL (<200); Estimated GFR 109.14 (mL/min/1.73m2); Glucose 104 mg/dL (74-106); HDL Cholesterol 81 mg/dL (>or=40); Potassium 4.1 mmol/L (3.5-5.1); Sodium 130 mmol/L (136-145); Total Protein 8.1 g/dL (6.4-8.2); Triglyceride 83 mg/dL (<150)
== END 2025-04-23 17:53 | disposition home or self-care (01) ==
LOC: NCHCN 17:52
PROVIDERS: PCP Nurse Practitioner Family; Visit Provider Nurse Practitioner Family
DX: R19.7 Diarrhea, unspecified (principal); E78.5 Hyperlipidemia, unspecified; I10 Essential (primary) hypertension
CPT/HCPCS: 80053; 80061; 85027

== ENCOUNTER 2025-05-16 06:17 | Day surgery (SDC) | payer OTHER, SELFPAY ==
[2025-05-16 06:27] VITALS: BP 152/90; PULSE 62; RESP 16; TEMP 36.4; O2SAT 98
--- NOTE | 2025-05-16 07:06 | PDOC.DSDIS_ITS ---
Date of service: 05/16/25 Discharge Plan Disposition Patient Disposition: Home Condition: Good Discharge Details Reason For Visit: RMF Trigger release Attending Provider: Jacinto Wyman Primary Care Provider: KIRAN ISBELL Home Meds and New Rx's Prescriptions: New acetaminophen 500 mg tablet 1,000 mg PO TID Qty: 90 0RF ibuprofen 600 mg tablet 600 mg PO TID PRN (Reason: pain) Qty: 90 0RF Continued sildenafil 25 mg tablet 25 mg PO DAILY PRN Rx Instructions: administer 30 minutes to 4 hours before activity lisinopril 20 mg tablet 20 mg PO DAILY hydrochlorothiazide 12.5 mg tablet 12.5 mg PO DAILY atorvastatin 20 mg tablet 20 mg PO DAILY aspirin 81 mg Tablet,Chewable 81 mg PO DAILY Discontinued ibuprofen 600 mg tablet 600 mg PO TID PRN (Reason: pain) Qty: 90 3RF acetaminophen 500 mg tablet 500 mg PO Q6H PRN PRN (Reason: pain) Qty: 60 3RF Discharge Instructions Stand Alone Forms: Zamzam Villalba Finger Release, Etta Aguila (DSU) Referrals: Jacinto Wyman MD [ [facility] STAFF PHYSICIAN, Orthopaedic Surgical] - 05/24/25 8:45 am Activity:: Activity as Tolerated Remove Dressings/Wound Care:: 48 hours Shower/Bathe:: 48 hours Diet:: As Tolerated Discharge Orders Discharge Orders: Discharge Order (Routine); Ordered 05/16/25 Ordered By: Jorge Alberto Tracey DS: Diagnosis Discharge Diagnosis (1) Trigger finger, right middle finger: Status: Acute
--- NOTE | 2025-05-16 07:29 | W.PM.OP ---
Operative Note Operative Note PRE-OP DIAGNOSIS: Right Middle Finger Trigger Finger POST-OP DIAGNOSIS: same PROCEDURE: Trigger Finger Release - Right Middle Finger SURGEON: Jacinto Wyman ANESTHESIA TYPE: Local By Surgeon Refer to Anesthesia Record ESTIMATED BLOOD LOSS: 0 PATHOLOGY: none sent COMPLICATIONS: None Patient was transported to: same day Patient's condition: stable Indications: I have seen Hansel in clinic for symptoms of a trigger finger. The catching, clicking, locking, and pain limited function. The diagnosis of trigger finger was evident. The symptoms had not responded to conservative measures. I discussed trigger finger release with the patient. I reviewed the risks of the procedure to include, but not limited to, bleeding, infection, pain, stiffness, incomplete release, damage to nerves or vessels, continued catching, recurrence. Despite these risks, the patient elected to proceed. Findings: There was a tightened A1 terri which was released. The flexor tendons were inspected and the patient was able to move the finger without any catching, clicking, or locking. Procedure Description: Hansel was greeted in the preoperative holding area where the correct side was identified and marked. The consent was reviewed with the patient and signed. All questions were answered. He was taken back to the operating room. The patient was placed into the supine position on the operating room table with the right arm on an arm board. All bony prominences were well padded. No prophylactic antibiotics were administered since this was a clean, elective hand surgical case. The left arm was then prepped with Chloraprep and draped in a standard fashion with stockinette and extremity drape. A timeout to confirm correct identity, side and site, procedure, allergies, anesthesia, and medical concerns was performed. The surgical site was marked as a longitudinal incision directly over the A1 terri of the involved digit. This was confirmed with palpation during finger flexion. This area, overlying the metacarpal head, was then anesthetized with 1% Lidocaine. The patient tolerated this well and once the anesthetic had setup, the procedure began. A longitudinal incision was made through skin only, approximately 1cm. The deep tissues were dissected bluntly. Once the A1 terri and flexor tendons were identified the soft tissue including neurovascular structures were retracted medially and laterally. There were no crossing structures over the A1 terri. The proximal edge of the terri was identified and the terri was incised with tenotomy scissors. There was a release of the tendons once this was fully released. The tendons were then removed from the wound and inspected. Excess synovium was resected. The tendons were then returned and the patient was asked to move the finger into deep flexion and back to extension. There was no recreation of the pre-operative symptoms. The hand was then once more inspected for any A0 terri or area of possible constriction. The wound was then irrigated and the skin was closed with a 4-0 Nylon. This was dressed with gauze and a Conform dressing. The patient tolerated the procedure well and was returned to the Same Day Surgery area in a stable condition suffering no known complication. Date of Procedure: 05/16/25
[2025-05-16] MEDS: Lidocaine 1% Multi-Dose W/EPI 1/100,000 50 ML VIAL (07:40)
[2025-05-16] MEDS: Sodium Bicarbonate 50 MEQ/50 ML VIAL (07:41)
[2025-05-16 07:55] VITALS: BP 149/95; PULSE 59; RESP 16; TEMP 36.4; O2SAT 97
== END 2025-05-16 07:58 | disposition home or self-care (01) ==
PROVIDERS: PCP Nurse Practitioner Family; Visit Provider Student in an Organized Health Care Education/Training Program
PROC: (CPT 26055; principal; 2025-05-16 07:30)
DX: M65.331 Trigger finger, right middle finger (principal)
CPT/HCPCS: 26055; J2004

== ENCOUNTER 2025-10-25 14:23 | Outpatient (CLI) | payer OTHER, SELFPAY ==
--- NOTE | 2025-10-25 08:30 | DI.RAD_ITS ---
Exam(s) XR FINGER LT INDEX EXAM: XR FINGER LT INDEX CLINICAL HISTORY: left index finger proximal phalanx mass. TECHNIQUE: 2D digital imaging was performed. COMPARISON: No exams were available for comparison FINDINGS: 3 views There is a small 1-2 mm calcific density seen off the medial aspect of the distal interphalangeal joint of the 2nd-index finger. No other articular findings nor significant bony lesions. Small bony excrescence seen on both sides of the mid-distal diaphysis of the proximal phalanx which appear benign and there appears to be a similar finding on the adjacent proximal phalanx of the 3rd-middle finger. There is no radiopaque foreign body. No gas in the soft tissues. IMPRESSION: As above. DATA REPOSITORY: RADIATION DOSE DELIVERED:
== END 2025-10-25 14:24 | disposition home or self-care (01) ==
LOC: DIORS 14:24
PROVIDERS: PCP Nurse Practitioner Family; Visit Provider Student in an Organized Health Care Education/Training Program
DX: M67.442 Ganglion, left hand (principal)
CPT/HCPCS: 73140